=== PATIENT | male | born 1950 | race Caucasian/White ===

== ENCOUNTER 2018-09-23 21:32 | Emergency (ER) | payer MEDICARE, SELFPAY ==
[2018-09-23 21:32] VITALS: BP 76/66; PULSE 121; RESP 15; TEMP 36.9; O2SAT 97; BMI 28.6
[2018-09-23 21:37] VITALS: BP 82/61; PULSE 124; RESP 18; O2SAT 97
[2018-09-23 21:42] VITALS: BP 82/61; PULSE 121; RESP 18; O2SAT 98
[2018-09-23 21:58] VITALS: BP 87/71; PULSE 128; RESP 21; O2SAT 96
[2018-09-23 22:00] VITALS: BP 83/69; PULSE 133; RESP 30; O2SAT 94
--- NOTE | 2018-09-23 22:08 | RAD_ITS ---
STUDY: X-RAY CHEST REASON FOR EXAM: Male, 67 years old. Hypotension TECHNIQUE: Single AP portable view of the chest. COMPARISON: None. FINDINGS: EKG leads overlie the chest Lungs are expanded with diffuse opacifications throughout both lung gomez suggestive of infiltrates. No demonstrated effusion. Follow-up recommended to assure resolution. There is no demonstrated pleural abnormality. Normal size heart. Normal mediastinum and rishabh. Normal visualized pulmonary arteries. Normal visualized aortic arch and descending thoracic aorta. Normal visualized thoracic spine. Normal visualized ribs, clavicles, and shoulders. There is no demonstrated abnormality of the visualized soft tissue structures of the upper abdomen. RAD/Chest 1 View (Portable) IMPRESSION: Diffuse airspace opacifications in both lung gomez, follow-up recommended to assure resolution Electronically Signed: Anthony Urbina MD at 22:22 EDT , Service support ,
[2018-09-23 22:15] VITALS: PULSE 130; RESP 32; O2SAT 98
[2018-09-23] MEDS: Etomidate 20 MG/10 ML Vial IV (22:15)
[2018-09-23] MEDS: Succinylcholine Chloride 200 MG/10 ML Vial 100 MG IV (22:16)
--- NOTE | 2018-09-23 22:35 | CM.ED ---
SOCIAL WORK NOTE THIS WORKER RESPONDED TO CODE BLUE. EMOTIONAL SUPPORT AND EDUCATION PROVIDED TO DAUGHTER'S IN WAITING ROOM. DR. VILLAGRAN WITH FAMILY UPDATING ON PATIENT'S STATUS AT THIS TIME. KARMA MEDINA, [employer], [employer].
--- NOTE | 2018-09-23 22:47 | ED.RN ---
PT ARRIVES C/O SOB, DR. VILLAGRAN AT BEDSIDE WITH PT. PT HR STARTS TO LAI DOWN. HR IN 30'S, ATROPINE 1 MG GIVEN IVP BY Chyna LIGHT RN AT 2218. PT IN PEA, CPR INITIATED SEE CODE DOCUMENTATION.
--- NOTE | 2018-09-23 22:49 | EKG12_ITS ---
Test Reason : CP Blood Pressure : / mmHG Vent. Rate : 122 BPM Atrial Rate : 122 BPM P-R Int : 154 ms QRS Dur : 126 ms QT Int : 320 ms P-R-T Axes : 056 130 041 degrees QTc Int : 456 ms Sinus tachycardia Right bundle branch block Abnormal ECG Confirmed by NELIDA GARCIA, BRUCE ([id number]), movie editor ARTURO LOPEZ ([id number]) on 09/26/2018 1:12:04 PM Referred By: Confirmed By:BRUCE KRAUSE MD
[2018-09-23 23:11] LABS: Absolute Lymphocyte Count 3.29 X10^3/ul (0.83-4.51); Absolute Neutrophil Count 8.2 X10^3/uL (2.0-7.7); Basophil# 0.05 X10^3/uL; Basophil% 0.4 % (0-1); Eosinophil# 0.32 X10^3/uL; Eosinophils% 2.5 % (0-5); Hematocrit 45.1 % (40-54); Hemoglobin 15.2 g/dl (13.0-16.5); Lymphocyte # 3.29 X10^3/ul (4.0); Lymphocyte % 25.3 % (19-41); Mean Corp Hgb Conc 33.7 g/gl (32-36); Mean Corpuscular Hgb 30.4 pg (27.0-32.0); Mean Corpuscular Volume 90.2 fL (80-94); Mean Platelet Vol. 10.7 fl (6.2-12.0); Monocyte# 1.09 X10^3/uL; Monocyte% 8.4 % (0-10); Neutrophil # 8.22 X10^3/uL (2.7-7.7); Neutrophil % 63.2 % (47-70); Platelet Count 380 K/mm3 (150-450); RBC Distribution Width CV 12.8 % (11.6-14.6); RBC Distribution Width SD 42.1 fl (35.1-43.9)
[2018-09-23 23:12] LABS: POSITIVE COUNT NO; POSITIVE DIFFERENTIAL NO; POSITIVE MORPHOLOGY NO
[2018-09-23 23:19] LABS: International Normalized Ratio 1.1; Prothrombin Time (Protime)PT. 14.4 SECONDS (11.7-14.9)
[2018-09-23 23:22] LABS: D-Dimer Quantitative (DVT/PE) 1.08 FEU/ug/m (0.27-0.49)
--- NOTE | 2018-09-23 23:27 | PCM.PN.BLA ---
Progress Note Called at 10:[address] Lora from the emergency room for help with management of the patient who had arrived to the emergency room via EMS with complaints of shortness of breath. He was noted to be tachycardic and hypotensive. EKG on arrival showed sinus tachycardia and right bundle branch block pattern. I arrived in the emergency room at 10:28 PM to find patient in cardiac arrest with CPR being performed . Noted to be in PEA. Persistently remained in PEA. Patient was unable to be resuscitated. Code run by the ER physician for prolonged period of time but was ultimately called off.
--- NOTE | 2018-09-23 23:36 | PN_ITS ---
Progress Note Called at 10:[address] Lora from the emergency room for help with management of the patient who had arrived to the emergency room via EMS with complaints of shortness of breath. He was noted to be tachycardic and hypotensive. EKG on arrival showed sinus tachycardia and right bundle branch block pattern. I arrived in the emergency room at 10:28 PM to find patient in cardiac arrest with CPR being performed . Noted to be in PEA. Persistently remained in PEA. Patient was unable to be resuscitated. Code run by the ER physician for p rolonged period of time but was ultimately called off.
[2018-09-23 23:40] LABS: Anion Gap 7 (5-15); BUN 19 mg/dL (7-18); BUN/Creat Ratio 13.9 RATIO (10-20); Calcium,Total 8.1 mg/dL (8.5-10.1); Chloride 104 mmol/L (98-107); Creatinine, Serum 1.37 mg/dL (0.70-1.30); EST Glomerular Filtration Rate 55 mL/min (>60); Est Glom Filt Rate - Afr Amer 66 mL/min (>60); Estimated Creatinine Clearance 50.89 ml/min; Glucose 113 mg/dL (74-106); Lactic Acid 2.8 mmol/L (0.4-2.0); Potassium 4.1 mmol/L (3.5-5.1); Sodium Level 137 mmol/L (136-145)
--- NOTE | 2018-09-24 00:34 | ED.RN ---
AT 2215. DR. VILLAGRAN AT BEDSIDE WITH PATIENT. PT COMPLAINS OF SOB. PLACED ON NRB MASK AT 15L PER RESPIRATORY THERAPIST. PT HR STARTING TO DROP TO 50'S. PT NECK IS MOTTLED AND DUSKY, GASPING FOR AIR. VERBAL ORDERS FROM DR. JULIO FOR RSI. NORMAL SALINE FLUID BOLUS INFUSON VIA PRESSURE BAG FOR LOW BP. 2215 20 MG ETOMIDATE GIVEN IVP PER [place] YEE THROUGH LEFT HAND. 2216 100 MG SUCCINYLCHOLINE IVP GIVEN BY [place] YEE THROUGH RIGHT HAND. 2218 DR[address] VILLAGRAN ATTEMPTING INTUBATION, PT LOSES PULSE, CPR INITIATED. SEE CODE. DOCUMENTATION.
[2018-09-24 03:07] LABS: Reflex Lactate? Y
--- NOTE | 2018-09-24 04:48 | ED.VISSUMM ---
- ER Visit Summary Date of Service: 09/24/18 Chief Complaint: Shortness of breath History of Present Illness: The patient is a 67 M past medical history of prostate cancer, BPH and hypertension. Unknown surgeries. Patient presents with severe shortness of breath and anxious. I was called in the room by nursing staff on my arrival. Patient was anxious and dyspneic. On a nonrebreather mask the patient's pulse ox was 98%. States he had onset of shortness of breath tonight. Several hours prior to arrival. He denies any chest pain. He denies any abdominal pain. He denies any fever or significant cough. Family stated that he had no recent illnesses or hospitalizations. Physical Examination: 82/61 temperature 98.5 heart rate 121. Pulse ox 98% on nonrebreather mask and respiratory distress. Patient was very anxious. HEENT exam unremarkable. Moist mucous membranes. Pupils round reactive to light. Neck nontender. No lymphadenopathy. No JVD. Lungs diminished throughout. Few scattered rales. Heart tachycardic rate about 120 no murmur. Abdomen distended. No peritoneal signs. Patient moving all 4 extremities. Calves nontender. Neurologically he was awake. He was following commands and answering questions. As his respiratory status deteriorated so did his mental status and he was emergently intubated. Patient was treated with IV succinylcholine and etomidate. Due to his initial hypotension he was treated with IV fluids. Patient was a difficult airway. Emesis was suctioned. He was very anterior. With a glide scope I was unable to see the vocal cords but did successfully place the ET tube with bilateral breath sounds. Good color change. An OG was also placed which did decrease his abdominal distention. Test Results: Portable chest x-ray 1 view has bilateral pulmonary edema consistent with CHF. EKG shows a sinus tachycardia rate of 122 with a right bundle branch block and diffuse deep ST-T wave depression in leads V1 through V6 consistent with myocardial ischemia. Once I saw the EKG placed a call to the auto garage attendant on-call and requested ER consultation. Concern was acute pulmonary edema caused by myocardial ischemia rule out posterior MT. Prior to cardiology his arrival in the emergency department the patient continued to deteriorate. CPR was begun. He was treated with atropine for bradycardia. And epinephrine for PEA. He was also given bicarbonate. Patient received multiple rounds of epinephrine. Intermittently we would get a faintly palpable femoral or carotid pulse that lasted for short period of time. Emergency Department Course and Treatment: CPR was continued with ACLS protocol. Patient had multiple dysrhythmias including sinus tachycardia, bradycardia, PEA and ultimately asystole. After lengthy CPR with no improvement. I pronounced the patient at 23:10 PM. Treatment Plan: [] Disposition: Manuel Impression: Respiratory failure Myocardial ischemia Flash pulmonary edema / CHF ET intubation by ER Multiple dysrhythmias including sinus tachycardia, sinus bradycardia, PEA and ultimately asystole Pronounced at 23:10 PM on Monday, September 24, 2018 This note was generated with [employer] dictation software. It may contain incorrect words, spelling, and punctuation that were not noted in review of the chart prior to signing ED Disposition - Plan for ED Patient: Disposition: Referrals: William Godinez MD [Primary Care Provider] -
--- NOTE | 2018-09-24 05:06 | ED.DCSUM_ITS ---
- ER Visit Summary Date of Service: 09/24/18 Chief Complaint: Shortness of breath History of Present Illness: The patient is a 67 M past medical history of prostate cancer, BPH and hypertension. Unknown surgeries. Patient presents with severe shortness of breath and anxious. I was called in the room by taye gonzalez staff on my arrival. Patient was anxious and dyspneic. On a nonrebreather mask the patient's pulse ox was 98%. States he had onset of shortness of breath tonight. Several hours prior to arrival. He denies any chest pain. He denies any abdominal pain. He denies any fever or significant cough. Family stated that he had no recent illnesses or hospitalizations. Physical Examination: 82/61 temperature 98.5 heart rate 121. Pulse ox 98% on nonrebreather mask and respiratory distress. Patient was very anxious. HEENT exam unremarkable. Moist mucous membranes. Pupils round reactive to light. Neck nontender. No lymphadenopathy. No JVD. Lungs diminished throughout. Few scattered rales. Heart tachycardic rate about 120 no murmur. Abdomen distended. No peritoneal signs. Patient moving all 4 extremities. Calves nontender. Neurologically he was awake. He was following commands and answering questions. As his respiratory status deteriorated so did his mental status and he was emergently intubated. Patient was treated with IV succinylcholine and etomidate. Due to his initial hypotension he was treated with IV fluids. Patient was a difficult airway. Emesis was suctioned. He was very anterior. With a glide scope I was unable to see the vocal cords but did successfully place the ET tube with bilateral breath sounds. Good color change. An OG was also placed which did decrease his abdominal distention. Test Results: Portable chest x-ray 1 view has bilateral pulmonary edema consistent with CHF. EKG shows a sinus tachycardia rate of 122 with a right bundle branch block and diffuse deep ST-T wave depression in leads V1 through V6 consistent with myocardial ischemia. Once I saw the EKG placed a call to the [facility] business trainer on-call and requested ER consultation. Concern was acute pulmonary edema caused by myocardial ischemia rule out posterior MO. Prior to cardiology his arrival in the emergency department the patient continued to deteriorate. CPR was begun. He was treated with atropine for bradycardia. And epinephrine for PEA. He was also given bicarbonate. Patient received multiple rounds of epinephrine. Intermittently we would get a faintly palpable femoral or carotid pulse that lasted for short period of time. Emergency Department Course and Treatment: CPR was continued with ACLS protocol. Patient had multiple dysrhythmias including sinus tachycardia, bradycardia, PEA and ultimately asystole. After lengthy CPR with no improvement. I pronounced the patient at 23:10 PM. Treatment Plan: [] Disposition: [place] Impression: Respiratory failure Myocardial ischemia Flash pulmonary edema / CHF ET intubation by ER Multiple dysrhythmias including sinus tachycardia, sinus bradycardia, PEA and ultimately asystole Pronounced at 23:10 PM on Monday, September 24, 2018 This note was generated with [employer] dictation software. It may contain incorrect words, spelling, and punctuation that were not noted in review of the chart prior to signing ED Disposition - Plan for ED Patient: Disposition: Referrals: William Godinez MD [Primary Care Provider] -
== END 2018-09-24 01:58 ==
PROVIDERS: Emergency Provider Emergency Medicine; Family Provider Internal Medicine; PCP Internal Medicine
DX: I46.9 Cardiac arrest, cause unspecified (principal); N40.0 Benign prostatic hyperplasia without lower urinary tract symptoms; I25.9 Chronic ischemic heart disease, unspecified; I11.0 Hypertensive heart disease with heart failure; I50.1 Left ventricular failure, unspecified; J96.90 Respiratory failure, unspecified, unspecified whether with hypoxia or hypercapnia; Z85.46 Personal history of malignant neoplasm of prostate
CPT/HCPCS: 31500; 71045; 80048; 83605; 84484; 85025; 85379; 85610; 92950; 93005; 99283; J7030; A4216; J0330